=== PATIENT | female | born 1995 | race Caucasian/White ===

== ENCOUNTER → 2017-11-18 | Outpatient (CLI) | payer OTHER ==
[~2017-11-18] MED LIST: ALB18R INH; AMOX-559 PO; ASCO-182 PO; AZIT-1 PO; BENZ100C4 PO; CETI-176 PO; GUAI120L3 PO; HUMA0.5V IM; MONT10TA PO; NAPR-724 PO; NAPR220C12 PO; PRED-1 PO; PRED20TA6 PO
== END ==
LOC: LAB 16:05
PROVIDERS: ATTEND Nurse Practitioner Primary Care
DX: R30.0 Dysuria (principal)
CPT/HCPCS: 81001